=== PATIENT | male | born 1990 | race Caucasian/White ===

== ENCOUNTER 2019-08-04 11:07 | Emergency (ER) | payer BC, OTHER ==
[2019-08-04] MEDS ORDERED: Sodium Chloride 0.9% 1000 ML 1,000 ML IV STA (11:27)
[2019-08-04] MEDS ORDERED: Sodium Chloride 0.9% 1000 ML 1,000 ML ONE ×2 (11:35→12:17)
[2019-08-04 11:42] LABS: Lactic Acid 2.1 (0.4-2.0)
[2019-08-04 11:44] LABS: Absolute Neutrophil Ct (ANC) 8.37 (1.4-6.9); BASOPHIL % 0.1 % (0.0-0.4); Basophil (Absolute #) 0.01 (0-0.4); Eosinophil % 0.2 % (0.00-5.0); Eosinophil (Absolute #) 0.02 (0-0.5); Hematocrit 44.5 % (42-50); Hemoglobin 15.6 gm/dl (12.5-18.0); Lymphocyte (Absolute #) 1.01 (1.0-4.6); Mean Cell Volume 87.1 fl (78-100); Mean Corpuscular Hemoglobin 30.5 pg (26-32); Mean Corpuscular Hgb Concent. 35.1 g/dl (32-36); Mean Platelet Volume 10.4 fl (6-9.5); Monocyte (Absolute #) 0.73 (0.0-1.3); Monocytes % 7.2 % (0.0-12.0); Neutrophil % 82.5 % (36.0-66.0); Platelet Count 199 K/mm3 (150-450); Red Blood Count 5.11 M/mm3 (4.1-5.6); Red Cell Distribution Width 12.5 % (11.5-14.0); White Blood Count 10.1 K/mm3 (4.0-10.5)
[2019-08-04 11:49] LABS: ALBUMIN 4.8 g/dL (3.5-5.0); ALKALINE PHOSPHATASE 92 U/L (38-126); ANION GAP 18.6 MEQ/L (5-15); BLOOD UREA NITROGEN 11 mg/dL (9-20); CHLORIDE 103 mmol/L (98-107); Calcium 9.5 mg/dL (8.4-10.2); Carbon Dioxide 23 mmol/L (22-30); Creatinine 1 0.75 mg/dL (0.66-1.25); Glucose 110 mg/dL (74-106); Potassium 4.1 mmol/L (3.5-5.1); SGOT/AST 49 U/L (17-59); SGPT/ALT 68 U/L (0-50); SODIUM 141 mmol/L (137-145); Total Protein 9.1 g/dL (6.3-8.2)
--- NOTE | 2019-08-04 11:56 | ERPHSYRPT ---
- History of Present Illness Time Seen by Provider: 08/04/19 11:27 Source: patient, family Exam Limitations: no limitations Patient Subjective Stated Complaint: fever Triage Nursing Assessment: Patient ambulated back to ED and transferred self to bed. Patient complains of fever, malaise for the past month. Patient has been on several antibiotics the past month. Patient complains of constant throbbing headache 05/14. Patient's stated patient hasn't been acting right today. Patient has been sweating and feeling weak. Patient has been urinating frequently and sweating. Patient's lungs clear a/p viola. Heart tones audible. No edema noted. Patient states he has been sick since June 13. Timing/Duration: week(s) (4) Fever Severity: moderate Associated Symptoms: diaphoresis, headache, sore throat, syncope (near), weakness International travel in last 2 weeks: No Allergies/Adverse Reactions: No Known Drug Allergies Allergy (Unverified 08/04/19 11:13) Hx Influenza Vaccination/Date Given: No Hx Pneumococcal Vaccination/Date Given: No Immunizations Up to Date: Yes - Review of Systems Constitutional: Fever, No Chills Eyes: No Symptoms Ears, Nose, & Throat: Throat Pain Respiratory: No Cough, No Dyspnea Cardiac: Syncope (near), No Chest Pain, No Edema Abdominal/Gastrointestinal: Diarrhea, No Abdominal Pain, No Nausea, No Vomiting Genitourinary Symptoms: Frequency Musculoskeletal: No Back Pain, No Neck Pain Skin: No Rash Neurological: Dizziness, Headache, No Focal Weakness, No Sensory Changes Psychological: Other (vivid dreams) Endocrine: No Symptoms All Other Systems: Reviewed and Negative - Past Medical History Pertinent Past Medical History: No Neurological History: No Pertinent History ENT History: No Pertinent History Cardiac History: No Pertinent History Respiratory History: No Pertinent History Endocrine Medical History: No Pertinent History Musculoskeletal History: No Pertinent History GI Medical History: No Pertinent History History: No Pertinent History Psycho-Social History: No Pertinent History Male Reproductive Disorders: No Pertinent History - Past Surgical History Past Surgical History: No Neuro Surgical History: No Pertinent History Cardiac: No Pertinent History Respiratory: No Pertinent History Gastrointestinal: No Pertinent History Genitourinary: No Pertinent History Musculoskeletal: No Pertinent History - Social History Smoking Status: Never smoker Exposure to second hand smoke: No Drug Use: none Patient Lives Alone: No - Nursing Vital Signs Nursing Vital Signs: Initial Vital Signs Temperature 98.5 F 08/04/19 11:15 Pulse Rate 107 H 08/04/19 11:15 Respiratory Rate 18 08/04/19 11:15 Blood Pressure 132/84 08/04/19 11:15 O2 Sat by Pulse Oximetry 96 08/04/19 11:15 Pain Scale Pain Intensity 8 - Physical Exam General Appearance: no apparent distress, alert Eye Exam: PERRL/EOMI ENT Exam: normal ENT inspection, No pharyngeal erythema, No tonsillar exudate Neck Exam: supple, full range of motion, No meningismus Respiratory Exam: normal breath sounds, lungs clear, no respiratory distress Cardiovascular/Chest Exam: normal heart sounds, regular rate/rhythm, No murmur, No edema Gastrointestinal/Abdominal Exam: soft, non tender, no distention Extremity Exam: non-tender, normal range of motion, normal inspection, normal capillary refill, no pedal edema Neurologic Exam: alert, oriented x 3, cooperative, immigration associate II-XII nml as tested, normal mood/affect, sensation nml, No motor deficits Skin Exam: normal color, warm, dry, No rash Lymphatic: No adenopathy SpO2 Interpretation: normal SpO2: 96 Ordered Tests: Active Orders 24 hr Category Date Time Status CHEST 2 VIEWS (PA AND LAT) Stat Exams 08/04/19 11:29 Completed SINUSES WITHOUT CONTRAST [CT] Stat Exams 08/04/19 13:19 Completed BLOOD CULTURE Stat Lab 08/04/19 11:50 Received CBC W DIFF Stat Lab 08/04/19 11:37 Completed CMP Stat Lab 08/04/19 11:37 Completed Lactic Acid Stat Lab 08/04/19 11:27 Completed Lactic Acid Stat Lab 08/04/19 14:20 Completed Becker Screen Stat Lab 08/04/19 11:38 Completed UA W/RFX UR CULTURE Stat Lab 08/04/19 12:50 Completed Medication Summary Generic Name Dose Route Start Last Admin Trade Name Freq PRN Reason Stop Dose Admin Sodium Chloride 1,000 mls @ 999 mls/hr 08/04/19 13:00 08/04/19 14:04 Sodium Chloride 0.9% 1000 Ml IV 09/03/19 12:59 Infused .Q1H1M WILLIAMS Infusion Discontinued Medications Generic Name Dose Route Start Last Admin Trade Name Freq PRN Reason Stop Dose Admin Acetaminophen 650 mg 08/04/19 14:55 08/04/19 14:57 Tylenol 325 Mg PO 08/04/19 14:56 650 mg STAT STA Administration Acetaminophen Confirm 08/04/19 14:56 Tylenol 325 Mg Administered 08/04/19 14:57 Dose 650 mg .ROUTE .STK-MED ONE Sodium Chloride 1,000 mls @ 999 mls/hr 08/04/19 11:27 08/04/19 12:53 Sodium Chloride 0.9% 1000 Ml IV 08/04/19 12:27 Infused .Q1H1M STA Infusion Sodium Chloride Confirm 08/04/19 11:35 Sodium Chloride 0.9% 1000 Ml Administered 08/04/19 11:36 Dose 1,000 mls @ ud .ROUTE .STK-MED ONE Sodium Chloride Confirm 08/04/19 12:17 Sodium Chloride 0.9% 1000 Ml Administered 08/04/19 12:18 Dose 1,000 mls @ ud .ROUTE .STK-MED ONE Lab/Rad Data: Laboratory Result Diagrams 08/04/19 11:37 08/04/19 11:37 Laboratory Results 08/04/19 08/04/19 08/04/19 Range/Units 14:20 12:50 12:38 WBC (4.0-10.5) K/mm3 RBC (4.1-5.6) M/mm3 Hgb (12.5-18.0) gm/dl Hct (42-50) % MCV (78-100) fl MCH (26-32) pg MCHC (32-36) g/dl RDW (11.5-14.0) % Plt Count (150-450) K/mm3 MPV (6-9.5) fl Gran % (36.0-66.0) % Eos # (Auto) (0-0.5) Absolute Lymphs (auto) (1.0-4.6) Absolute Monos (auto) (0.0-1.3) Lymphocytes % (24.0-44.0) % Monocytes % (0.0-12.0) % Eosinophils % (0.00-5.0) % Basophils % (0.0-0.4) % Absolute Granulocytes (1.4-6.9) Basophils # (0-0.4) Sodium (137-145) mmol/L Potassium (3.5-5.1) mmol/L Chloride (98-107) mmol/L Carbon Dioxide (22-30) mmol/L Anion Gap (5-15) MEQ/L BUN (9-20) mg/dL Creatinine (0.66-1.25) mg/dL Estimated GFR ML/MIN Glucose (74-106) mg/dL Lactic Acid 1.4 (0.4-2.0) Calcium (8.4-10.2) mg/dL Total Bilirubin (0.2-1.3) mg/dL AST (17-59) U/L ALT (0-50) U/L Alkaline Phosphatase (38-126) U/L Serum Total Protein (6.3-8.2) g/dL Albumin (3.5-5.0) g/dL Urine Color YELLOW (YELLOW) Urine Appearance CLEAR (CLEAR) Urine pH 6.0 (5-6) Ur Specific [place] 1.018 (1.005-1.025) Urine Protein NEGATIVE (Negative) Urine Ketones NEGATIVE (NEGATIVE) Urine Blood NEGATIVE (0-5) [place]/ul Urine Nitrite NEGATIVE (NEGATIVE) Urine Bilirubin NEGATIVE (NEGATIVE) Urine Urobilinogen NEGATIVE (0-1) mg/dL Ur Leukocyte Esterase NEGATIVE (NEGATIVE) Urine WBC (Auto) NONE (0-5) /HPF Urine RBC (Auto) NONE (0-2) /HPF U Epithel Cells (Auto) NONE (FEW) /HPF Urine Bacteria (Auto) NONE (NEGATIVE) /HPF Urine Mucus (Auto) SLIGHT (NEGATIVE) /HPF Urine Culture Reflexed NO (NO) Urine Glucose NEGATIVE (NEGATIVE) mg/dL Monoscreen (Negative) Influenza Type A Ag NEGATIVE (NEGATIVE) Influenza Type B Ag NEGATIVE (NEGATIVE) RSV (PCR) NEGATIVE (Negative) Group A Strep Antibody (NEGATIVE) 08/04/19 08/04/19 08/04/19 Range/Units 11:38 11:37 11:37 WBC (4.0-10.5) K/mm3 RBC (4.1-5.6) M/mm3 Hgb (12.5-18.0) gm/dl Hct (42-50) % MCV (78-100) fl MCH (26-32) pg MCHC (32-36) g/dl RDW (11.5-14.0) % Plt Count (150-450) K/mm3 MPV (6-9.5) fl Gran % (36.0-66.0) % Eos # (Auto) (0-0.5) Absolute Lymphs (auto) (1.0-4.6) Absolute Monos (auto) (0.0-1.3) Lymphocytes % (24.0-44.0) % Monocytes % (0.0-12.0) % Eosinophils % (0.00-5.0) % Basophils % (0.0-0.4) % Absolute Granulocytes (1.4-6.9) Basophils # (0-0.4) Sodium 141 (137-145) mmol/L Potassium 4.1 (3.5-5.1) mmol/L Chloride 103 (98-107) mmol/L Carbon Dioxide 23 (22-30) mmol/L Anion Gap 18.6 H (5-15) MEQ/L BUN 11 (9-20) mg/dL Creatinine 0.75 (0.66-1.25) mg/dL Estimated GFR > 60.0 ML/MIN Glucose 110 H (74-106) mg/dL Lactic Acid (0.4-2.0) Calcium 9.5 (8.4-10.2) mg/dL Total Bilirubin 1.10 (0.2-1.3) mg/dL AST 49 (17-59) U/L ALT 68 H (0-50) U/L Alkaline Phosphatase 92 (38-126) U/L Serum Total Protein 9.1 H (6.3-8.2) g/dL Albumin 4.8 (3.5-5.0) g/dL Urine Color (YELLOW) Urine Appearance (CLEAR) Urine pH (5-6) Ur Specific [place] (1.005-1.025) Urine Protein (Negative) Urine Ketones (NEGATIVE) Urine Blood (0-5) [place]/ul Urine Nitrite (NEGATIVE) Urine Bilirubin (NEGATIVE) Urine Urobilinogen (0-1) mg/dL Ur Leukocyte Esterase (NEGATIVE) Urine WBC (Auto) (0-5) /HPF Urine RBC (Auto) (0-2) /HPF U Epithel Cells (Auto) (FEW) /HPF Urine Bacteria (Auto) (NEGATIVE) /HPF Urine Mucus (Auto) (NEGATIVE) /HPF Urine Culture Reflexed (NO) Urine Glucose (NEGATIVE) mg/dL Monoscreen NEGATIVE (Negative) Influenza Type A Ag (NEGATIVE) Influenza Type B Ag (NEGATIVE) RSV (PCR) (Negative) Group A Strep Antibody NEGATIVE (NEGATIVE) 08/04/19 08/04/19 Range/Units 11:37 11:27 WBC 10.1 (4.0-10.5) K/mm3 RBC 5.11 (4.1-5.6) M/mm3 Hgb 15.6 (12.5-18.0) gm/dl Hct 44.5 (42-50) % MCV 87.1 (78-100) fl MCH 30.5 (26-32) pg MCHC 35.1 (32-36) g/dl RDW 12.5 (11.5-14.0) % Plt Count 199 (150-450) K/mm3 MPV 10.4 H (6-9.5) fl Gran % 82.5 H (36.0-66.0) % Eos # (Auto) 0.02 (0-0.5) Absolute Lymphs (auto) 1.01 (1.0-4.6) Absolute Monos (auto) 0.73 (0.0-1.3) Lymphocytes % 10.0 L (24.0-44.0) % Monocytes % 7.2 (0.0-12.0) % Eosinophils % 0.2 (0.00-5.0) % Basophils % 0.1 (0.0-0.4) % Absolute Granulocytes 8.37 H (1.4-6.9) Basophils # 0.01 (0-0.4) Sodium (137-145) mmol/L Potassium (3.5-5.1) mmol/L Chloride (98-107) mmol/L Carbon Dioxide (22-30) mmol/L Anion Gap (5-15) MEQ/L BUN (9-20) mg/dL Creatinine (0.66-1.25) mg/dL Estimated GFR ML/MIN Glucose (74-106) mg/dL Lactic Acid 2.1 H (0.4-2.0) Calcium (8.4-10.2) mg/dL Total Bilirubin (0.2-1.3) mg/dL AST (17-59) U/L ALT (0-50) U/L Alkaline Phosphatase (38-126) U/L Serum Total Protein (6.3-8.2) g/dL Albumin (3.5-5.0) g/dL Urine Color (YELLOW) Urine Appearance (CLEAR) Urine pH (5-6) Ur Specific [place] (1.005-1.025) Urine Protein (Negative) Urine Ketones (NEGATIVE) Urine Blood (0-5) [place]/ul Urine Nitrite (NEGATIVE) Urine Bilirubin (NEGATIVE) Urine Urobilinogen (0-1) mg/dL Ur Leukocyte Esterase (NEGATIVE) Urine WBC (Auto) (0-5) /HPF Urine RBC (Auto) (0-2) /HPF U Epithel Cells (Auto) (FEW) /HPF Urine Bacteria (Auto) (NEGATIVE) /HPF Urine Mucus (Auto) (NEGATIVE) /HPF Urine Culture Reflexed (NO) Urine Glucose (NEGATIVE) mg/dL Monoscreen (Negative) Influenza Type A Ag (NEGATIVE) Influenza Type B Ag (NEGATIVE) RSV (PCR) (Negative) Group A Strep Antibody (NEGATIVE) - Departure Departure Disposition: Home Clinical Impression: Fever Qualifiers: Fever type: unspecified Qualified Code(s): R50.9 - Fever, unspecified Condition: Fair Critical Care Time: No Referrals: FAUSTO HUDDLESTON [Primary Care Provider] - Plan of Treatment: VIRAL ILLNESS 1. Rest at home and take any prescribed medications as directed or until gone. 2. Offer plenty of fluids as tolerated. 3. Acetaminophen or Ibuprofen as directed. 4. Be sure to follow up with your family physician or return to the emergency department if symptoms change or become worse.
--- NOTE | 2019-08-04 12:18 | XRAY ---
Indication: Fever. Comparison: None PA/lateral chest demonstrates normal heart, lungs, and bony thorax with incidental left hilar/lung calcified granulomas.
[2019-08-04 12:48] LABS: INFLUENZA A NEGATIVE (NEGATIVE); INFLUENZA B NEGATIVE (NEGATIVE); RESPIRATORY SYNCTIAL VIRUS NEGATIVE (Negative)
[2019-08-04] MEDS ORDERED: Sodium Chloride 0.9% 1000 ML 1,000 ML IV SCH (13:00)
[2019-08-04 13:05] LABS: Appearance CLEAR (CLEAR); Bilirubin NEGATIVE (NEGATIVE); Blood NEGATIVE Ery/ul (0-5); Glucose NEGATIVE (NEGATIVE); Ketones NEGATIVE (NEGATIVE); Leukocyte Esterase NEGATIVE (NEGATIVE); Mucus SLIGHT /HPF (NEGATIVE); Nitrite NEGATIVE (NEGATIVE); Protein,Urine Dip NEGATIVE (Negative); Specific Gravity 1.018 (1.005-1.025); Urobilinogen NEGATIVE mg/dL (0-1)
[2019-08-04 14:23] VITALS: BP 130/72
--- NOTE | 2019-08-04 14:40 | XRAY ---
Indication: Frontal sinus pressure. Multiple contiguous axial images obtained through the paranasal sinuses. Sagittal and coronal reformatted images obtained. Comparison: None Paranasal sinuses, ostiomeatal units, and nasal passages are clear. Minimal nasal septal deviation to the right. No acute fracture, suspicious bony lesions, or osseous destructive process. A few incidental dental amalgams produces beam artifact. Visualized noncontrasted soft tissues including globes and base of the brain unremarkable. Impression: Minimal nasal septal deviation. Remaining CT sinuses negative. CTDI 40.44
[2019-08-04] MEDS ORDERED: TYLENOL 325 MG PO STA (14:55)
[2019-08-04] MEDS ORDERED: TYLENOL 325 MG ONE (14:56)
[2019-08-04 15:00] VITALS: PULSE 91
[2019-08-04 15:31] VITALS: O2SAT 96
== END 2019-08-04 15:40 | disposition home or self-care (01) ==
LOC: ED 11:07
DX: R50.9 Fever, unspecified (principal); B34.9 Viral infection, unspecified
CPT/HCPCS: 36415; 70486; 71046; 80053; 81001; 82962; 83605; 84145; 85025; 86308; 87040; 87631; 87651; 96360; 96361; 99284; A9270-GY